=== PATIENT | male | born 1980 | race Two or more races ===

== ENCOUNTER → 2017-02-27 | Outpatient (CLI) | payer MEDICARE, OTHER ==
--- NOTE | 2017-02-27 13:31 | RADIOLOGY REPORT (SQ) ---
EXAM DESCRIPTION: U/S EXTREMITY NONVASCULAR COMP COMPLETED DATE/TIME: 02/27/2017 1:06 pm REASON FOR STUDY: RIGHT AXILLARY SWELLING M79.89 OTHER SPECIFIED SOFT TISSUE DISORDERS COMPARISON: None. TECHNIQUE: Dynamic and static grayscale images acquired of the localized site of clinical concern an d recorded on PACS. Additional selected color Doppler and spectral images recorded. SITE OF CONCERN: Right axilla LIMITATIONS: None. FINDINGS: SKIN AND SUBCUTANEOUS TISSUES: Hyperemia and heterogeneous subcutaneous soft tissues witho ut a discrete mass. No abnormal nodes. DEEP SOFT TISSUES/MUSCLES: No masses. No fluid collections. No edema. VASCULAR: No increased or decreased vascularity. No occlusions. OTHER: No other significant finding. IMPRESSION: Heterogeneous soft tissue swelling hyperemia in the subcutaneous soft tissues. No focal mass. No focal lymph nodes. TECHNICAL DOCUMENTATION: JOB ID: [id number] [employer]- All Rights Reserved
== END ==
LOC: RAD 12:09
PROVIDERS: ATTEND Family Medicine
DX: M79.89 Other specified soft tissue disorders (principal)
CPT/HCPCS: 76881

== ENCOUNTER → 2017-07-16 | Outpatient (CLI) | payer MEDICARE, OTHER ==
--- NOTE | 2017-07-16 17:25 | RADIOLOGY REPORT (SQ) ---
EXAM DESCRIPTION: U/S SCROTUM W/O DOPPLER COMPLETED DATE/TIME: 07/16/2017 4:35 pm REASON FOR STUDY: K40.90 UNILATERAL INGUINAL HERNIA, WITHOUT OBSTRUCTION OR GANGRENE, NOT SPE K40.90 UNIL INGUINAL HERNIA, W/O OBST OR GANGR, NOT SPCF COMPARISON: None. TECHNIQUE: Static and realtime alejandra scale imaging of the scrotum and testes. Selected color Doppler and spectral images recorded to document blood flow. LIMITATIONS: None. FINDINGS: RIGHT: TESTICLE: Normal size, 4.2 x 2.7 x 2 cm in size. Normal echotexture. Normal blood flow. No mass. EPIDIDYMIS: 2 mm cyst in the right epididymal head. Epididymis otherwise unremarkable. HYDROCELE OR VARICOCELE: Tiny hydrocele HERNIA OR EXTRA-TESTICULAR MASS: No. OTHER: No other significant finding. LEFT: TESTICLE: Normal size, 4.2 x 2.7 x 2.2 cm in size. Normal echotexture. Normal blood flow. No mass. EPIDIDYMIS: Normal. HYDROCELE OR VARICOCELE: Tiny hydrocele HERNIA OR EXTRA-TESTICULAR MASS: No. OTHER: No other significant finding. IMPRESSION: NORMAL SCROTAL ULTRASOUND. NO EVIDENCE OF TESTICULAR MASS OR TORSION. NO ULTRASOUND EVIDENCE OF RIGHT OR LEFT INGUINAL HERNIA TECHNICAL DOCUMENTATION: JOB ID: [id number] [employer]- All Rights Reserved
== END ==
LOC: RAD 15:32
PROVIDERS: ATTEND Family Medicine
DX: K40.90 Unilateral inguinal hernia, without obstruction or gangrene, not specified as recurrent (principal)
CPT/HCPCS: 76870

== ENCOUNTER → 2017-09-03 | Outpatient (CLI) | payer MEDICARE, OTHER ==
--- NOTE | 2017-09-04 09:58 | RADIOLOGY REPORT (SQ) ---
EXAM DESCRIPTION: MRI LT LOWER JOINT WITHOUT COMPLETED DATE/TIME: 09/03/2017 5:19 pm REASON FOR STUDY: UNILATERAL PRIMARY OSTEOARTHRITIS LEFT KNEE M17.12 UNILATERAL PRIMARY OSTEOARTHRI TIS, LEFT KNEE COMPARISON: None. TECHNIQUE: Leftknee images acquired and stored on PACS. Multiplanar images include fat sensitive se quences as T1, water sensitive sequences as FST2 or STIR, cartilage sensitive sequences as FSPD, and gradient echo sequences. LIMITATIONS: None. FINDINGS: JOINT AND BURSAE: Minimal joint effusion. No popliteal cyst. BONE CORTEX AND MARROW: No alteration of signal to suggest marrow replacement. No worrisome bone lesi ons. No occult fracture. ACL: Intact. No degeneration or ganglion cyst. PCL: Intact. MCL: Intact. No periligamentous edema or fluid. LCL: Intact. No periligamentous edema or fluid. MEDIAL MENISCUS: No tears. No abnormal signal. LATERAL MENISCUS: No tears. No abnormal signal. MEDIAL COMPARTMENT: Cartilage preserved. No bone bruises or reactive marrow edema. No osteophytes. LATERAL COMPARTMENT: Cartilage preserved. No bone bruises or reactive marrow edema. No osteophytes. PATELLA: No chondromalacia. No subchondral cysts. Medial and lateral retinacula intact. EXTENSOR MECHANISM: Intact. Quadriceps and patella tendons normal. SOFT TISSUES: Adjacent muscles and subcutaneous tissues normal. Normal flow void in popliteal artery and vein. OTHER: No other significant finding. IMPRESSION: Minimal joint effusion. No internal derangement. TECHNICAL DOCUMENTATION: JOB ID: [id number] [employer]- All Rights Reserved
== END ==
LOC: RAD 16:30
PROVIDERS: ATTEND Physician Assistant
DX: M17.12 Unilateral primary osteoarthritis, left knee (principal)

== ENCOUNTER 2018-03-31 08:57 | Day surgery (SDC) | payer MEDICARE, OTHER ==
[~2018-03-31 08:57] MED LIST: CEFAZOLIN 2 GM/D5W RTU 2 GM/50 ML RTUPB IV PRN
[2018-03-31 09:20] LABS: APPEARANCE,URINE CLEAR; BILIRUBIN,URINE NEGATIVE (NEGATIVE); COLOR,URINE STRAW; GLUCOSE, URINE NEGATIVE (NEGATIVE); KETONES,URINE NEGATIVE (NEGATIVE); LEUKOCYTE ESTERASE,URINE NEGATIVE (NEGATIVE); NITRITE,URINE NEGATIVE (NEGATIVE); PROTEIN,URINE NEGATIVE (NEGATIVE); URINE SPECIFIC GRAVITY 1.005; UROBILINOGEN,URINE NEGATIVE mg/dL (<2.0)
[2018-03-31] MEDS ORDERED: MIDAZOLAM 2 MG/2 ML INJ ONE (11:09)
[2018-03-31] MEDS ORDERED: HYDROMORPHONE HCL INJ/PF 2 MG/ML AMPULE ONE (11:09)
[2018-03-31] MEDS ORDERED: BUPIVACAINE HCL 0.25 % INJ/PF (2.5 MG/1 ML) 30 ML VIAL ONE (11:09)
[2018-03-31] MEDS ORDERED: LIDOCAINE 2% INJ-PF (20 MG/ML) 10 ML AMPUL ONE (11:09)
[2018-03-31] MEDS ORDERED: PROPOFOL INJ 200 MG/20 ML VIAL IV ONE (11:10)
[2018-03-31] MEDS ORDERED: ACETAMINOPHEN 1,000 MG/100 ML RTUPB IV ONE (11:10)
[2018-03-31] MEDS ORDERED: DEXMEDETOMIDINE INJ 80 MCG/20 ML VIAL IV ONE (11:41)
[2018-03-31] MEDS ORDERED: SUCCINYLCHOLINE CHLORIDE INJ 200 MG/10 ML VIAL ONE (11:46)
[2018-03-31] MEDS ORDERED: ONDANSETRON HCL INJ/PF 4 MG/2 ML SDV IV PRN (12:11)
[2018-03-31] MEDS ORDERED: PROMETHAZINE HCL INJ 25 MG/1 ML VIAL IV PRN ×2 (12:11)
[2018-03-31] MEDS ORDERED: MEPERIDINE HCL/PF INJ 25 MG/1 ML DISP.SYRIN IV PRN (12:11)
[2018-03-31] MEDS ORDERED: FENTANYL CITRATE INJ/PF 100 MCG/2 ML AMPUL IV PRN ×3 (12:11)
[2018-03-31] MEDS ORDERED: OXYCODONE-ACETAMINOPHEN 5-325 MG TABLET PO PRN ×3 (12:11→13:43)
[2018-03-31] MEDS ORDERED: DIPHENHYDRAMINE HCL 50 MG/ML VIAL IV PRN (12:11)
[2018-03-31] MEDS ORDERED: FENTANYL CITRATE INJ/PF 100 MCG/2 ML AMPUL ONE (13:36)
--- NOTE | 2018-03-31 13:43 | Discharge Summary ---
Discharge Summary (SDC) - Discharge Final Diagnosis: Right ankle instability and synovitis Date of Surgery: 03/31/18 Discharge Date: 03/31/18 Condition: Good Treatment or Instructions: Keep dressing dry clean and intact. Ambulate with crutches and toe-touch weightbearing. Ice and elevate. Remove dressing in 3 days then okay to shower. Follow-up in 10-14 days Prescriptions: Oxycodone HCl/Acetaminophen [Percocet 5-325 mg Tablet] 1 - 2 tab PO ASDIR PRN # 25 tablet PRN Reason: Referrals: KATHRYN WREN MD [Primary Care Provider] - Respiratory Treatments at Home: Deep Breathing/Coughing Discharge Activity: Keep Legs Elevated, No Lifting/Push/Pulling, Slowly Increase Activity Home Care Assistance: None Needed Report the Following to Your Physician Immediately: Shortness of Breath, Vomiting, Increase in Pain, Fever over 101 Degrees, Unusual Bleeding, Redness, Swelling, Warmth, Increased Soreness, Drainage-Yellow, Drainage-Lmoas, Drainage- Green, Drainage-Foul Smelling
[2018-03-31] MEDS ORDERED: OXYCODONE-ACETAMINOPHEN 5-325 MG TABLET ONE (14:36)
[2018-03-31 16:34] VITALS: BP 126/79
--- NOTE | 2018-04-15 14:08 | Operative Report ---
Operative Report DATE OF SURGERY: 03/31/18 PREOPERATIVE DIAGNOSIS: Right ankle instability and synovitis POSTOPERATIVE DIAGNOSIS: Same OPERATION: Right ankle arthroscopy with partial synovectomy and debridement as well as ATFL repair SURGEON: ALISIA FUENTES ANESTHESIA: GA TISSUE REMOVED OR ALTERED: None COMPLICATIONS: none ESTIMATED BLOOD LOSS: Less than 10 mL INTRAOPERATIVE FINDINGS: As above PROCEDURE: After receiving preoperative antibiotics patient was brought to the operating room where he received general anesthetic. He was placed in supine position and the right lower extremity was prepped and draped in a normal sterile surgical fashion. Timeout was done identifying the right ankle as the correct site. The ankles placed in the distraction system and ankle scope was done with doing a 11 blade and dissection with hemostats. The trocar was introduced in the ankle joint was distended with sterile saline solution. I then under direct visualization I established my anterior lateral portal. I then switched sides and did a diagnostic scope showing the patient had synovitis and scar tissue but no articular cartilage defect. I used a 3.0 mm shaver to then do resection of the synovial fraying and was identified a scar tissue. Once I completed this and I proceeded to remove the fluid from the ankle joint and remove the scope. I then turned my attention to the reconstruction of the ATFL doing a repair. 15 blade was used to do my incision at the distal end of the lateral malleolus dissecting towards the talus. This skin incision was done with a 15 blade and then Metzenbaum scissors was used to dissect the tissue. Once identified the redundant deficient ATFL and then peeled that off the lateral malleolus. I then placed my suture tacks by drilling and placing the bio composite anchors and using this to time and repair the ATFL. I then proceeded to use an internal brace but using by composite swivel locks to use a fiber tape as an internal brace by locking of both in the talus and lateral malleolus. Placed ankle range of motion and felt there is significant tightness. I then proceeded to close my wound was 2-0 Vicryl and 3-0 nylon. Xeroform 4 x 4 dressing ABD pad was applied followed by soft roll. Patient then was undraped and extubated and sent to PACU in stable condition
== END 2018-03-31 15:55 | disposition home or self-care (01) ==
LOC: OROUT 08:57
PROVIDERS: ATTEND Orthopaedic Surgery
DX: M25.371 Other instability, right ankle (principal); M65.9 Synovitis and tenosynovitis, unspecified; I10 Essential (primary) hypertension; Z79.899 Other long term (current) drug therapy; Z86.718 Personal history of other venous thrombosis and embolism; Z87.820 Personal history of traumatic brain injury; Z01.89 Encounter for other specified special examinations
CPT/HCPCS: 29895; 29897; 27695; 36415; 84132; 81001; C1713; J2250; J3010; A9270; J1170; J0330; J2704; J3490 ×2; J0690; J0131; 1464

== ENCOUNTER → 2019-04-11 | Outpatient (CLI) | payer MEDICARE, OTHER ==
[2019-04-11 09:06] LABS: HEMATOCRIT 43.8 % (37.9-51.0); HEMOGLOBIN 15.1 g/dL (13.5-17.0); MEAN CORPUSCULAR HEMOGLOBIN 28.1 pg (27.0-33.4); MEAN CORPUSCULAR HGB CONC 34.5 g/dL (32.0-36.0); MEAN CORPUSCULAR VOLUME 81 fl (80-97); PLATELET COUNT 196 10^3/uL (150-450); RED BLOOD COUNT 5.39 10^6/uL (4.35-5.55); RED CELL DISTRIBUTION WIDTH 14.1 % (11.5-14.0); WHITE BLOOD COUNT 6.8 10^3/uL (4.0-10.5)
[2019-04-11 09:38] LABS: ALBUMIN 4.4 g/dL (3.5-5.0); ALKALINE PHOSPHATASE 58 U/L (38-126); ANION GAP 12 (5-19); ASPARTATE AMINO TRANSFERASE 44 U/L (17-59); BILIRUBIN,DIRECT 0.3 mg/dL (0.0-0.4); BILIRUBIN,TOTAL 0.4 mg/dL (0.2-1.3); BLOOD UREA NITROGEN 14 mg/dL (7-20); CALCIUM 9.2 mg/dL (8.4-10.2); CARBON DIOXIDE 26 mmol/L (22-30); CHLORIDE 103 mmol/L (98-107); CHOLESTEROL 212.06 mg/dL (0-200); GLUCOSE 113 mg/dL (75-110); POTASSIUM 4.2 mmol/L (3.6-5.0); TOTAL PROTEIN 7.2 g/dL (6.3-8.2); TRIGLYCERIDES 315 mg/dL (<150)
[2019-04-11 09:49] LABS: DIRECT LDL 151 mg/dL (<100)
== END ==
LOC: OD 08:16
PROVIDERS: ATTEND Physician Assistant
DX: R07.9 Chest pain, unspecified (principal)
CPT/HCPCS: 36415; 80048; 80061; 80076; 83735; 84443; 85027

== ENCOUNTER → 2019-04-11 | Outpatient (CLI) | payer MEDICARE, OTHER ==
--- NOTE | 2019-04-11 09:53 | RADIOLOGY REPORT (SQ) ---
EXAM DESCRIPTION: DUPLEX ART/ERIN FLOW COMPLETE COMPLETED DATE/TIME: 04/11/2019 8:11 am REASON FOR STUDY: ARLIN (I70.1) I70.1 ATHEROSCLEROSIS OF RENAL ARTERY I10 ESSENTIAL (PRIMARY) HYPERT ENSION COMPARISON: None. TECHNIQUE: Realtime and static grayscale images acquired. Selected color Doppler, velocities and spe ctral images recorded. LIMITATIONS: Large body habitus, midline bowel gas, difficulty visualizing the renal artery origins directly off the aorta. FINDINGS: RIGHT KIDNEY: RENAL ARTERY VELOCITIES: At the hilum, 86 cm/sec. Segmental artery velocity 50 cm/sec. RENAL VEIN: Color doppler flow present, patent. VELOCITY RATIO: Normal. Normal waveforms. KIDNEY: Normal size. No significant pathology. LEFT KIDNEY: RENAL ARTERY VELOCITIES: At the hilum 115 cm/sec. Segmental artery velocity 48 cm/sec. RENAL VEIN: Color doppler flow present, patent. VELOCITY RATIO: Normal. Normal waveforms. KIDNEY: Normal size. No significant pathology. BLADDER: Decompressed, not well seen OTHER: No other significant finding. IMPRESSION: NO DOPPLER EVIDENCE OF HEMODYNAMICALLY SIGNIFICANT RENAL ARTERY STENOSIS. COMMENT: NORMAL RENAL ARTERY/AORTA VELOCITY RATIO IS LESS THAN OR EQUAL TO 3.5. TECHNICAL DOCUMENTATION: JOB ID: [id number] [employer]- All Rights Reserved Reading location - IP/workstation name: [email or web address]
== END ==
LOC: RAD 07:00
PROVIDERS: ATTEND Internal Medicine
DX: I70.1 Atherosclerosis of renal artery (principal)
CPT/HCPCS: 93975

== ENCOUNTER → 2019-05-18 | Day surgery (SDC) | payer MEDICARE, OTHER ==
--- NOTE | 2019-05-18 15:10 | RADIOLOGY REPORT (SQ) ---
EXAM DESCRIPTION: CT LT UPPER EXTREMITY WITH COMPLETED DATE/TIME: 05/18/2019 2:43 pm REASON FOR STUDY: M25.512 PAIN IN LEFT SHOULDER M25.512 PAIN IN LEFT SHOULDER COMPARISON: Arthrogram left shoulder films same date CT arthrogram left shoulder 04/06/2016 TECHNIQUE: Axial imaging performed through the leftshoulder with reformatted oblique coronal and obl ique sagittal imaging windowed for bone and soft tissues. All CT scanners at this facility use dose modulation, iterative reconstruction, and/or weight based d osing when appropriate to reduce radiation dose to as low as reasonably achievable (ALARA). [facility]: Dose Right [facility]: CareDose [facility]: Dose Right [facility]: Teradose 4D [facility]: [employer] RADIATION DOSE: CT Rad equipment meets quality standard of care and radiation dose reduction techniq ues were employed. CTDIvol: 31.1 mGy. DLP: 959 mGy-cm. mGy. LIMITATIONS: Streak artifact from metallic left humeral head prosthesis FINDINGS: Prior imaging was reviewed from 2016. Post arthrogram CT was performed today, with sagittal and coronal reconstructions. Since the prior CT, patient has undergone surgery with widening at the acromioclavicular joint, plac ement of a glenoid non metallic prosthesis, and left humeral head metallic prosthesis. CT exam demon strates no lucency around the hardware worrisome for loosening. No tracking of intra-articular contr ast along the prosthesis worrisome for loosening. A tiny defect in the anterior rotator cuff at the rotator interval is suspected, with faint opacifica tion of the subacromial/subdeltoid bursa with contrast, best shown on the coronal series 302 images 2 3 through 28. Remainder of the rotator cuff is grossly normal in thickness without other gross defec t identified. Normal alignment at the glenohumeral joint. Surgical widening at the AC joint. No significant narro wing of the subacromial space. Soft tissues around the right shoulder are unremarkable. No axillary adenopathy. Ribs are unremarka ble. No lung lesions in the field of view. IMPRESSION: Suspect a small tear along the rotator interval. Normal alignment at the left shoulder prosthesis without CT signs of loosening. TECHNICAL DOCUMENTATION: JOB ID: [id number] Quality ID # [id number]: Final reports with documentation of one or more dose reduction techniques (e.g., Au tomated exposure control, adjustment of the mA and/or kV according to patient size, use of iterative reconstruction technique) 2010 [employer]- All Rights Reserved Reading location - IP/workstation name: [email or web address]
--- NOTE | 2019-05-18 15:15 | RADIOLOGY REPORT (SQ) ---
EXAM DESCRIPTION: ARTHRO SHOULDER INJECTION; FLUORO/NEEDLE PLACEMENT COMPLETED DATE/TIME: 05/18/2019 2:55 pm REASON FOR STUDY: M25.512 PAIN IN LEFT SHOULDER M25.512 PAIN IN LEFT SHOULDER COMPARISON: CT arthrogram left shoulder 04/06/2016 FLUOROSCOPY TIME: 0.3 minutes 11 fluoroscopic images followed by five view shoulder radiographic images saved to PACS. LIMITATIONS: None. PROCEDURE: Procedure, risks, benefits and alternatives explained to patient who then gave written co nsent. The posterior left shoulder was marked and a time out was called for correct procedure verific ation. Posterior entry site marked using fluoroscopic guidance. Shoulder prepped and draped using s terile technique with ChloraPrep. Local anesthesia achieved using 6 mL of 1% lidocaine injection. 2 2 gauge spinal needle introduced into the joint space under direct fluoroscopic visualization. Non-io joan contrast instilled to confirm intra-articular position. Dilute gadolinium solution then injected. Needle removed and entry site covered with sterile bandage. No immediate complications noted. TECHNIQUE: Digital images acquired during fluoroscopy and stored on PACS. Patient immediately take n to the MR suite for additional imaging. INJECTION LOCATION: Posterior left glenohumeral joint CONTRAST TYPE AND AMOUNT: 1 mL of Isovue-300 was injected followed by 10 mL of dilute Isovue-300 Post procedure trans axillary, Grashey, AP, Y, internal and external rotation views were obtained. V percy faint contrast opacification of the subacromial/subdeltoid bursa is seen on these postprocedure r adiographs. CT, dictated separately, demonstrated a rotator interval tear. IMPRESSION: SUCCESSFUL NEEDLE PLACEMENT AND INJECTION FOR LEFT SHOULDER MR ARTHROGRAM USING POSTERIO R APPROACH. COMMENT: Quality ID 145: Final reports for procedures using fluoroscopy that document radiation exp osure indices, or exposure time and number of fluorographic images (if radiation exposure indices are not available) TECHNICAL DOCUMENTATION: JOB ID: [id number] [employer]- All Rights Reserved Reading location - IP/workstation name: [email or web address]
== END ==
LOC: RAD 12:15
PROVIDERS: ATTEND Orthopaedic Surgery
DX: M25.512 Pain in left shoulder (principal)
CPT/HCPCS: 23350; 77002

== ENCOUNTER → 2019-06-02 | Outpatient (CLI) | payer MEDICARE, OTHER ==
[2019-06-02 10:30] LABS: ALBUMIN 4.7 g/dL (3.5-5.0); ALKALINE PHOSPHATASE 57 U/L (38-126); ANION GAP 10 (5-19); ASPARTATE AMINO TRANSFERASE 42 U/L (17-59); BILIRUBIN,DIRECT 0.2 mg/dL (0.0-0.4); BILIRUBIN,TOTAL 0.5 mg/dL (0.2-1.3); BLOOD UREA NITROGEN 15 mg/dL (7-20); CALCIUM 9.8 mg/dL (8.4-10.2); CARBON DIOXIDE 29 mmol/L (22-30); CHLORIDE 100 mmol/L (98-107); GLUCOSE 109 mg/dL (75-110); POTASSIUM 4.2 mmol/L (3.6-5.0); TOTAL PROTEIN 7.3 g/dL (6.3-8.2)
[2019-06-02 10:35] LABS: ALBUMIN 4.7 g/dL (3.5-5.0); ALKALINE PHOSPHATASE 57 U/L (38-126); ASPARTATE AMINO TRANSFERASE 42 U/L (17-59); BILIRUBIN,DIRECT 0.2 mg/dL (0.0-0.4); BILIRUBIN,TOTAL 0.5 mg/dL (0.2-1.3); TOTAL PROTEIN 7.3 g/dL (6.3-8.2)
[2019-06-03 09:37] LABS: HEPATITS B SURFACE ANTIGEN Negative (Negative)
[2019-06-03 10:42] LABS: HEPATITIS C VIRUS ANTIBODY <0.1 s/co ratio (0.0-0.9)
== END ==
LOC: OD 08:16
PROVIDERS: ATTEND Physician Assistant
DX: Z01.810 Encounter for preprocedural cardiovascular examination (principal); M75.02 Adhesive capsulitis of left shoulder; I10 Essential (primary) hypertension; R94.5 Abnormal results of liver function studies; Z79.899 Other long term (current) drug therapy
CPT/HCPCS: 36415; 80048; 80074; 80076

== ENCOUNTER → 2020-01-02 | Outpatient (CLI) | payer MEDICARE, OTHER ==
[2020-01-02 13:09] LABS: ABSOLUTE EOSINOPHILS # (AUTO) 0.1 10^3/uL (0.0-0.6); ABSOLUTE LYMPHOCYTES (AUTO) 2.4 10^3/uL (0.5-4.7); ABSOLUTE MONOCYTES (AUTO) 0.3 10^3/uL (0.1-1.4); ABSOLUTE NEUT (AUTO) 4.3 10^3/uL (1.7-8.2); BASOPHILS % (AUTO) 0.7 % (0-2); EOSINOPHILS % (AUTO) 1.8 % (0-6); HEMATOCRIT 43.6 % (37.9-51.0); HEMOGLOBIN 15.2 g/dL (13.5-17.0); LYMPHOCYTES % (AUTO) 33.8 % (13-45); MEAN CORPUSCULAR HEMOGLOBIN 27.5 pg (27.0-33.4); MEAN CORPUSCULAR HGB CONC 34.9 g/dL (32.0-36.0); MEAN CORPUSCULAR VOLUME 79 fl (80-97); MONOCYTES % (AUTO) 4.8 % (3-13); PLATELET COUNT 233 10^3/uL (150-450); RED BLOOD COUNT 5.53 10^6/uL (4.35-5.55); SEGMENTED NEUTROPHILS % (AUTO) 58.9 % (42-78); TOTAL CELLS COUNTED % (AUTO) 100 %; WHITE BLOOD COUNT 7.2 10^3/uL (4.0-10.5)
[2020-01-02 13:48] LABS: ERYTHROCYTE SEDIMENTATION RATE 11 mm/hr (0-15)
== END ==
LOC: OD 12:35
PROVIDERS: ATTEND Orthopaedic Surgery
DX: Z86.14 Personal history of Methicillin resistant Staphylococcus aureus infection (principal); Z96.612 Presence of left artificial shoulder joint
CPT/HCPCS: 36415; 85025; 85652; 86141